=== PATIENT | female | born 2005 | race Two or more races ===

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

== ENCOUNTER 2025-01-05 13:34 | Outpatient (REF) | payer OTHER, SELFPAY ==
--- OUTSIDE RECORDS SUMMARY | 2025-01-05 14:25 | XMS_ITS | Encounter Summary ---
Author Organization [facility] [employer] Address [address] [place] [address] [address] [place] [address] Care Team Providers Care Software Recruiter Name Role Phone Maureen Dillard MD Primary Care Provider [phone] Reason for Visit * Reason Onset Date Comments Pre-visit Planning 02/06/2023 Encounter Details Date Type Department Care Team ([facility] st Contact Info) Description 02/06/2023 Telephone [facility] [address], [place] [phone] Maureen Dillard MD [address], [place] [phone] Pre-visit Planning Social History Tobacco Use Types Packs/Day Years Used Date Smoking Tobacco: Never Assessed Comments Unknown Sex and Gender Information Value Date Recorded Sex Assigned at Female 01/08/2023 1:32 PM EDT Legal Sex Female 10:13 AM EDT Gender Identity Female 01/08/2023 1:32 PM EDT Sexual Orientation Straight 02/18/2023 10 :24 AM EDT documented as of this encounter Miscellaneous Notes * Telephone Encounter - Audra Walsh - 02/08/2023 3:34 PM EDT Tc from pt returning your call Please contact pt at [phone] * Telephone Encounter - Isis Lao - 02/06/2023 9:15 AM EDT Tc from pt returning yesterday call . documented in this encounter Plan of Treatment Not on file documented as of this encounter Visit Diagnoses Not on filedocumented in this encounter Care Teams Software Recruiter Relationship Specialty Start Date End Date Maureen Dillard MD [address] [place] [address] PCP - General Family Medicine 02/06/23 documented as of this encounter
[2025-01-07 23:34] LABS: TS Negative Control Passed; TS Panel A 0; TS Panel B 0; TS Positive Control Passed; TSpotTB Negative (Negative)
== END 2025-01-05 13:35 | disposition home or self-care (01) ==
LOC: HO.HHCL 13:34
PROVIDERS: PCP Student in an Organized Health Care Education/Training Program; Visit Provider Student in an Organized Health Care Education/Training Program
DX: Z11.1 Encounter for screening for respiratory tuberculosis (principal)
CPT/HCPCS: 36415; 86481